=== PATIENT | female | born 1955 | race African-American/Black ===

== ENCOUNTER 2018-12-13 07:07 | Outpatient (CLI) | payer OTHER ==
[~2018-12-13 07:07] MED LIST: BUTA-177 PO; CEPH-368 PO; CHOL200024 PO; FLUO40CA9 PO; MELO15TA24 PO; METF500T17 PO; METH750T87 PO; OXYC-302 PO
== END 2018-12-13 23:59 | disposition home or self-care (01) ==
LOC: CFH 07:07
PROVIDERS: ATTEND Physician Assistant Surgical
DX: Z02.9 Encounter for administrative examinations, unspecified (principal)